=== PATIENT | male | born 1990 | race Caucasian/White ===

== ENCOUNTER 2021-10-20 17:42 | Emergency (ER) | payer OTHER, SELFPAY ==
[2021-10-20 17:43] VITALS: BP 119/68; PULSE 64; RESP 19; TEMP 36.8; O2SAT 99; BMI 25.0
--- NOTE | 2021-10-20 18:46 | HMH.EDUTC ---
[facility] [place] Disposition Clinical Impression: Dizziness Disposition: Still a Patient Condition on Discharge: Good Referrals: Nadiya Guzman [Primary Care Provider] - Time of Disposition: 18:55 (sent to ed report to chela) Medical Decision Making - Eric Inquiry Pt receiving controlled substance: No Vital Signs: 10/20/21 17:43 Temperature 98.3 F Temperature Source Oral Pulse Rate [Left Radial] 64 Respiratory Rate 19 Blood Pressure [Right Arm] 119/68 Blood Pressure Mean [Right Arm] 85 Blood Pressure Source [Right Arm] Automatic Cuff Blood Pressure Position [Right Arm] Sitting 02 Sat by Pulse Oximetry 99 Oxygen Delivery Method Room Air [facility] HPI - General Chief complaint: Urgent [facility] Stated complaint: dizzy, nausea Time Seen by Provider: 10/20/21 18:46 Mode of Arrival: Ambulatory Source of Information: Patient Limitations: No Limitations Description of Symptoms (Recalled from Triage Doc. by RN): dizzy and lightheaded and getting sick when he stands up since Friday HEENT Symptoms (Recalled from RN notes): No Resp Symptoms (Recalled from RN notes): No Skin Symptoms (Recalled from RN notes): No MS Symptoms (Recalled from RN notes): No Functional Status (Recalled from RN notes): na - History of Present Illness Provider Complaint: 31 yr old male presents for lightheaded and dizzy. pt states it started at 5-6 am and any movement makes him feel he is going to vomit and pass out. pt states he has been in bed all day and as long as he is still he is ok. - Worker's Comp Is this a Worker's Comp case?: No [facility] History - Hepatitis A Screen Drug use history?: No High risk sexual behaviors?: No History of sexually transmitted infection?: No Currently employed?: No Childcare worker?: No Do you have indoor plumbing?: Yes Do you have electricity?: Yes Attestation statement:: This patient has been screened for Hepatitis A risk factors. I have reviewed the patient's past medical history: Yes ROS Obtained: Yes Systems reviewed as appropriate & no additional complaints - Constitutional Constitutional: Reports system reviewed and no additional complaints, except as docu, Denies fatigue, Denies fever(s) - Eyes Eyes: Reports system reviewed and no additional complaints, except as docu, Reports blurry vision - ENT Ears, Nose, Mouth, and Throat: Reports system reviewed and no additional complaints, except as docu, Reports poor balance, Reports dizziness, Reports vertigo/dizziness - Cardiovascular Cardiovascular: Reports system reviewed and no additional complaints, except as docu, Denies chest pain - Respiratory Respiratory: Reports system reviewed and no additional complaints, except as docu, Denies cough - Gastrointestinal Gastrointestingal: Reports: system reviewed and no additional complaints, except as docu, nausea, vomiting - Musculoskeletal Musculoskeletal: Reports system reviewed and no additional complaints, except as docu, Denies joint pain - Integumentary/Breasts Skin/Breast: Reports system reviewed and no additional complaints, except as docu, Denies rash - Neurologic Neurologic: Reports system reviewed and no additional complaints, except as docu, Reports unsteadiness, Reports dizziness - Endocrine Endocrine: Reports system reviewed and no additional complaints, except as docu, Denies fatigue - Hematologic/Lymphatic Henatologic/Lymphatic: Reports system reviewed and no additional complaints, except as docu, Denies lymphadenopathy - Allergic/Immunologic Allergic/Immunologic: Reports system reviewed and no additional complaints, except as docu, Denies itchy eyes Physical Exam - General General appearance: alert, in no apparent distress - Head Head exam: atraumatic, normocephalic, normal inspection - Eye Eye exam: Present: normal appearance, PERRL - ENT ENT exam: Present: normal exam, normal oropharynx, mucous membranes moist, TM's normal bilaterally, normal external ear exam
--- NOTE | 2021-10-20 19:00 | PC.NURSE ---
PATIENT SENT TO ER PER Edinson MELENDEZ APRN FOR FURTHER EVALUATION. REPORT GIVEN TO Noel NEIL RN
[2021-10-20 19:10] VITALS: BP 138/75; PULSE 68; RESP 18; TEMP 36.6; O2SAT 98; BMI 27.3
--- NOTE | 2021-10-20 19:20 | PC.NURSE ---
placed pt on 2LPM NC per Dr. Tom.
--- NOTE | 2021-10-20 19:32 | ECG_ITS ---
APPROVED REPORT Exam: Resting ECG HR:52 bpm ECG Measurements Heart Rate 52 AXES MO 158 P -18 QRSd 103 QRS 44 QT 404 T 0 QTc 385 Conclusion SINUS BRADYCARDIA BORDERLINE ECG UNCONFIRMED REPORT Electronically signed by : Monroe Schafer MD 10/22/2021 18:01:00
--- NOTE | 2021-10-20 19:35 | HMH.EDGENADL ---
ED Disposition Clinical Impression: Dizziness Disposition: Still a Patient Condition on Discharge: Good Referrals: Nadiya Guzman [Primary Care Provider] - - Critical Care Critical Care Time: No Attestation: On 10/20/21, the high probability of a clinically significant, sudden or life threatening deterioration of the following system(s) required my full and direct attention, intervention and personal management. The time I documented below is in addition to time spent performing reported procedures but includes the following listed in this critical care notation. Medical Decision Making - Eric Inquiry Pt receiving controlled substance: No Vital Signs: 10/20/21 17:43 10/20/21 19:10 Temperature 98.3 F 97.8 F Temperature Source Oral Oral Pulse Rate [Left Radial] 64 68 Respiratory Rate 19 18 Blood Pressure [Right Arm] 119/68 138/75 Blood Pressure Mean [Right Arm] 85 96 Blood Pressure Source [Right Arm] Automatic Cuff Blood Pressure Position [Right Arm] Sitting 02 Sat by Pulse Oximetry 99 98 Oxygen Delivery Method Room Air Room Air - Lab Data Lab Results 10/20/21 19:10: WBC 9.9, RBC 5.73, Hgb 16.8, Hct 48.6, MCV 84.7, MCH 29.4, MCHC 34.7, RDW 13.4, Plt Count 247, MPV 7.7, Neut % (Auto) 76.2, Lymph % (Auto) 17.7, [place] % (Auto) 4.3, Eos % (Auto) 0.9, Baso % (Auto) 0.8, Neut # (Auto) 7.5, Lymph # (Auto) 1.8, [place] # (Auto) 0.4, Eos # (Auto) 0.1, Baso # (Auto) 0.1 10/20/21 19:10: Sodium 135 L, Potassium 4.1, Chloride 104, Carbon Dioxide 24, Anion Gap 11.1, BUN 13, Creatinine 0.80, Estimated Creat Clear 157, Estimated GFR 112, Est GFR ( Amer) 136, Glucose 121 H, Calcium 8.8, Total Bilirubin 0.6, AST 50, ALT 107 H, Alkaline Phosphatase 73, Total Protein 7.3, Albumin 4.6, Globulin 2.7, Albumin/Globulin Ratio 1.7 10/20/21 19:40: Lactate 1.7 Result diagrams: 10/20/21 19:10 10/20/21 19:10 Orders (Tests/Meds): ED MEDICATIONS Generic Name Dose Route Start Last Admin Trade Name Freq PRN Reason Stop Dose Admin Lactated Ringer's 1,000 mls @ 999 mls/hr 10/20/21 19:45 10/20/21 19:38 Lactated Ringer's 1000 Ml Bag IV 10/20/21 20:45 999 mls/hr .Q1H1M SAMANTHA Administration Discontinued Medications Generic Name Dose Route Start Last Admin Trade Name Freq PRN Reason Stop Dose Admin Meclizine HCl 25 mg 10/20/21 19:34 10/20/21 19:38 Meclizine 25mg Tablet PO 10/20/21 19:35 25 mg ONCE ONE Administration Ondansetron HCl 4 mg 10/20/21 19:34 10/20/21 19:38 Ondansetron 4mg/2ml Vial IV 10/20/21 19:35 4 mg ONCE ONE Administration ORDERS Category Date Time Status Carbon Monoxide, Whole Blood Stat Lab 10/20/21 19:32 Ordered Comprehensive Metabolic Panel Stat Lab 10/20/21 19:10 Results Troponin I Q3H Lab 10/20/21 22:45 Ordered Troponin I Q3H Lab 10/21/21 01:45 Ordered Troponin I Stat Lab 10/20/21 19:10 Results Venous Blood Gas Stat RT 10/20/21 19:32 Ordered EKG Request [ECG Request by Dr/Nse] Stat Y 10/20/21 19:32 Ordered Medical Decision Narrative: 31 yo male presents with dizziness and blurry vision associated with head movement. Nonfocal neuro exam, GCS 15, HINTS exam suggestive of peripheral, not central etiology. [place] Hall[place] test is negative. Able to ambulate without significant difficulty or ataxia. Finger to nose and heel to jugn intact. Motor and sensation grossly intact and normal per exam. DDx includes but not limited to BPPV, carbon monoxide toxicity, arrhythmia. Will obtain labs and imaging to further assess. EKG shows sinus bradycardia without AV block, normal intervals, no acute ischemic changes. Will give pt IVF bolus here in ED, give meclizine. Care handed off to Dr. Stanley pending labs, reassessment, final disposition. General Adult HPI - General Chief complaint: Dizziness Stated complaint: dizzy, nausea Time Seen by Provider: 10/20/21 18:46 Mode of Arrival: Family Vehicle Limitations: No Limitations Description of Symptoms (Recalled from ER [facility]
[2021-10-20 19:50] LABS: Basophils # 0.1 K/mm3 (0-0.2); Basophils % 0.8 % (0.1-2.0); Eosinophils # 0.1 K/mm3 (0.0-0.4); Eosinophils % 0.9 % (0.1-12.0); Hematocrit 48.6 % (42.0-52.0); Hemoglobin 16.8 g/dL (14.1-18.0); Lymphocytes # 1.8 K/mm3 (0.7-4.5); Lymphocytes % 17.7 % (10-50); Mean Corpuscular HGB Conc 34.7 g/dL (31.8-35.4); Mean Corpuscular Hemoglobin 29.4 pg (27.0-31.2); Mean Corpuscular Volume 84.7 fl (80-94); Mean Platelet Volume 7.7 fl (7.4-10.4); Monocytes # 0.4 K/mm3 (0.1-1.0); Monocytes % 4.3 % (1.7-9.3); Neutrophils # 7.5 K/mm3 (1.8-7.8); Neutrophils % 76.2 % (37.0-80.0); Platelet Count 247 K/mm3 (142-424); Red Blood Count 5.73 M/mm3 (4.60-6.20); Red Cell Distribution Width 13.4 % (11.5-17.5); White Blood Count 9.9 K/mm3 (4.8-10.8)
[2021-10-20 19:51] LABS: Chloride 104 mmol/L (98-107); Potassium 4.1 mmoL/L (3.5-5.1); Sodium 135 mmol/L (136-145)
[2021-10-20 19:54] LABS: Alanine Aminotransferase 107 U/L (12-78); Albumin Level 4.6 g/dl (3.5-5.0); Albumin/Globulin Ratio 1.7 (1.1-1.8); Alkaline Phosphatase 73 U/L (38-126); Anion Gap 11.1 mEq/L (5-15); Aspartate Amino Transferase 50 U/L (17-59); Bilirubin,Total 0.6 mg/dl (0.2-1.3); Blood Urea Nitrogen 13 mg/dl (9-20); Carbon Dioxide 24 mmol/L (22.0-30.0); Creatinine Clearance Estimated 157 mL/min (50-200); Estimated Glomerular Filt Rate 112 ml/min (>60); GFR (African American) 136 ML/MIN (>60); Globulin 2.7 g/dL (1.3-3.2); Total Protein,Serum 7.3 g/dl (6.3-8.2)
[2021-10-20 19:55] LABS: Calcium 8.8 mg/dl (8.4-10.2); Glucose 121 mg/dl (74-100)
[2021-10-20 20:03] LABS: Lactic Acid 1.7 mmol/L (0.7-2.1)
[2021-10-20 20:07] LABS: VBG Base Excess -1.5 mmol/L (-2.4-2.3); VBG HCO3 24.4 mmol/L (23-30); VBG Oxygen Saturation 76.6 % (50-70); VBG PCO2 47.2 mmol/L (35-51); VBG PH 7.33 mmol/L (7.31-7.41); VBG PO2 40.6 mmol/L (28-40); VBG Total CO2 25.9 mmol/L (23-27)
[2021-10-20 20:08] LABS: Troponin I < 0.01 ng/ml (0.00-0.034)
[2021-10-20 20:30] VITALS: BP 133/81; PULSE 59; RESP 17; O2SAT 100
[2021-10-20 20:49] VITALS: BP 128/79; PULSE 57; RESP 18; TEMP 36.6; O2SAT 97
[2021-10-24 17:27] LABS: Carbon Monoxide, Whole Blood 2.6 % (0.0-3.6)
== END 2021-10-20 21:10 | disposition home or self-care (01) ==
LOC: UTC 18:55 → ER 18:58
PROVIDERS: Emergency Provider Student in an Organized Health Care Education/Training Program; PCP Nurse Practitioner Family
DX: H81.10 Benign paroxysmal vertigo, unspecified ear (principal)
CPT/HCPCS: 80053; 82375; 82803; 83605; 84484; 85025; 93005; 96365; 96375; 99282; 99284; J2405

== ENCOUNTER → 2021-11-05 13:08 | Outpatient (CLI) | payer OTHER, SELFPAY ==
--- NOTE | 2021-11-05 13:12 | MR_ITS ---
FINAL REPORT CLINICAL HISTORY: DIZZINESS AND GIDDINESS. lt sided ear infection x1.5months. headache. lightheadedness. 17ml prohance given. FINDINGS: Multiplanar MR imaging of the brain was performed without and with contrast. There is no evidence of intracranial hemorrhage or mass. No abnormal extra-axial fluid collection is seen. The ventricular size is within normal limits. There is no evidence of shift of the midline structures. The posterior fossa and brainstem have an unremarkable appearance. No area of abnormal restricted diffusion is identified. No abnormal contrast enhancement is seen. Normal major vessel vascular flow voids are noted. There is mucosal thickening in the sinuses. IMPRESSION: No acute intracranial abnormality identified. Reviewed, Interpreted and Dictated by Bernardo Norris III, MD Transcribed by Elly Yoon Authenticated by Bernardo Norris III, MD on 11/05/2021 03:22:11 PM [facility]
== END ==
PROVIDERS: PCP Nurse Practitioner Family; Visit Provider Nurse Practitioner Family
DX: R42 Dizziness and giddiness (principal)
CPT/HCPCS: 70553; A9576

== ENCOUNTER 2023-11-25 16:59 | Emergency (ER) | payer OTHER, SELFPAY ==
--- NOTE | 2023-11-25 17:01 | ED_ITS ---
Discharge Plan Disposition Patient Disposition: Home, Self-Care Condition: Good Prescriptions Prescriptions: New amoxicillin-pot clavulanate 875-125 mg tablet 1 tab PO BID Qty: 20 0RF No Action meclizine 25 MG tablet 25 mg PO TID Qty: 10 0RF Referrals Follow up/Referrals: Bernardo Cain MD [Staff Physician] - See instructions Nadiya Guzman [Primary Care Provider] - See instructions Activity Restrictions/Add. Instructions Additional Instructions/Restrictions: Please call make an appointment with general surgery in the morning. Have called in a prescription for Augmentin into your pharmacy. You will receive the first dose now. Take Tylenol alternating every 4 hours with Motrin as needed for fever or pain or worsening symptoms. Return to the ER for any worsening signs or symptoms including nausea, vomiting, acute change in level of pain, fever Clinical Impressions Clinical Impression: Acute diverticulitis Discharge ED Provider: Cristiano Pedraza General Adult HPI <SHALA Taveras - Last Filed: 11/25/23 18:25> General Chief complaint: Abdominal Pain Stated complaint: abd pain , groin pain Time Seen by Provider: 11/25/23 17:01 History of Present Illness HPI narrative: Patient presents for evaluation of left flank pain and left testicle/groin pain since Friday. Patient reports that he woke up Friday morning with acute onset of left flank pain that radiated to his left testicle. 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 Patient denies chest pain fever chills hemoptysis hematochezia melena hematemesis hematuria dysuria. Patient has no family history of renal stones and no personal history of same. Patient has no history of inguinal hernias. Related Data Previous Rx's Medication Instructions Recorded meclizine 25 mg tablet 25 mg PO TID #10 tabs 10/20/21 amoxicillin 875 mg-potassium 1 tab PO BID #20 tabs 11/25/23 clavulanate 125 mg tablet Allergies Allergy/AdvReac Type Severity Reaction Status Date / Time No Known Allergies Allergy Verified 10/20/21 19:32 PFSH <SHALA Taveras - Last Filed: 11/25/23 18:25> PFS Disclaimer: The information contained in this section may have been updated after the patient was seen, as this information can be updated by other users. Social History (Updated 11/25/23 @ 18:25 by SHALA Taveras) Smoking Status: Never smoker alcohol intake: current current occupational status: employed Travel in the last 8 weeks: None <SHALA Taveras - Last Filed: 11/25/23 18:25> ROS Obtained: Yes Systems reviewed as appropriate & no additional complaints except as documented Physical Exam <SHALA Taveras - Last Filed: 11/25/23 18:25> General General appearance: alert and in no apparent distress Head Head exam: atraumatic and normal inspection Eye Eye exam: Present normal appearance and EOMI ENT ENT exam: Present normal exam, normal oropharynx and mucous membranes moist Neck Neck exam: Present normal inspection and full ROM; Absent lymphadenopathy Chest Chest inspection: Present normal inspection and symmetric chest wall rise Respiratory Respiratory exam: Present normal lung sounds bilaterally; Absent accessory muscle use Cardiovascular Cardiovascular exam: Present regular rate, normal rhythm, normal heart sounds, +S1 and +S2 Abdominal Exam Abdominal exam: Present soft, tenderness (Left flank) and normal bowel sounds; Absent guarding or rebound Abdominal tenderness: Present LUQ and LLQ Extremities Exam Extremities exam: Present normal inspection and full ROM Back Exam Back exam: Absent CVA tenderness (L) Neurological Exam Neurological exam: Present alert, oriented X3 and CN II-XII intact Psychiatric Psychiatric exam: Present normal affect and normal mood Skin Skin exam: Present warm, dry and normal color Lymphatic Lymphatic Findings: no adenopathy Medical Decision Making <SHALA Taveras - Last Filed: 11/25/23 18:25> Medical Records Medical records reviewed: Yes I reviewed the patient's medical records. Eric Inquiry Pt receiving controlled substance: No Vital Signs: 11/25/23 17:10 11/25/23 18:31 Temperature 97.8 F 98.4 F Temperature Source Oral Oral Pulse Rate 75 Pulse Rate [Right Radial] 77 Respiratory Rate 18 18 Blood Pressure 123/57 L Blood Pressure [Right Arm] 148/87 H Blood Pressure Mean [Right Arm] 107 02 Sat by Pulse Oximetry 99 Oxygen Delivery Method Room Air Lab Data Lab results reviewed: Yes I reviewed the patient's lab results. Lab Results 11/25/23 17:05: Urine Color Yellow, Urine Appearance Clear, Urine pH 6.0, Ur Specific [place] 1.025, Urine Protein Negative, Urine Glucose (UA) Negative, Urine Ketones Negative, Urine Blood Negative, Urine Nitrate Negative, Urine Bilirubin Negative, Urine Urobilinogen 0.2, Ur Leukocyte Esterase Negative 11/25/23 17:10: WBC 7.8, RBC 5.50, Hgb 16.2, Hct 47.7, MCV 86.7, MCH 29.4, MCHC 33.9, RDW 13.4, Plt Count 239, MPV 8.2, Neut % (Auto) 55.3, Lymph % (Auto) 32.6, [place] % (Auto) 8.6, Eos % (Auto) 1.7, Baso % (Auto) 1.7, Neut # (Auto) 4.3, Lymph # (Auto) 2.6, [place] # (Auto) 0.7, Eos # (Auto) 0.1, Baso # (Auto) 0.1, Sodium 141, Potassium 3.7, Chloride 105, Carbon Dioxide 29, Anion Gap 10.7, BUN 15, Creatinine 0.90, Estimated Creat Clear 148, Estimated GFR 97, Est GFR ( Amer) 117, Glucose 114 H, Calcium 9.5 11/25/23 17:10 11/25/23 17:10 Orders (Tests/Meds): ED MEDICATIONS Discontinued Medications Generic Name Dose Route Start Last Admin Trade Name Surya PRN Reason Stop Dose Admin Acetaminophen 1,000 mg 11/25/23 17:17 11/25/23 17:42 Acetaminophen 500mg Tab PO 11/25/23 17:18 1,000 mg ONCE ONE Administration Amoxicillin/Clavulanate Potassium 1 each 11/25/23 18:11 11/25/23 18:25 Amoxicillin/Clavulanate Potassium 875/125mg Tablet PO 11/25/23 18:12 1 each ONCE ONE Administration Ketorolac Tromethamine 30 mg 11/25/23 17:17 11/25/23 17:42 Ketorolac 30mg/Ml Vial IV 11/25/23 17:18 30 mg ONCE ONE Administration Methocarbamol 500 mg 11/25/23 17:19 11/25/23 17:43 Methocarbamol 500mg Tablet PO 11/25/23 17:20 500 mg ONCE ONE Administration ORDERS Category Date Time Status CT abdomen pelvis wo con Stat Cat Scan 11/25/23 17:17 Completed BMP [Basic Metabolic Panel] Stat Lab 11/25/23 17:10 Completed CBC w/Auto Diff [Complete Blood Count Auto Diff] Stat Lab 11/25/23 17:10 Completed UA [Urinalysis and Microscopic] Stat Lab 11/25/23 17:05 Results Medical Decision Narrative: In summary patient is a 43-year-old male who presents to the emergency department for evaluation of left flank pain. Patient is hemodynamically stable upon arrival, febrile. Physical exam is remarkable for tenderness to palpation in the left flank without CVA tenderness to percussion, tenderness that continues around the lateral side into the anterior and left lower quadrant towards the groin. There is no rebound guarding rigidity or masses on palpation. Palpation of the lower anterior abdominal wall/inguinal canal reveals no palpable masses or bowel loops or tenderness. External genitalia are normal to inspection and palpation. Differential diagnosis includes kidney stone versus hernia versus urinary tract infection versus intra-abdominal pathology versus muscle spasm pain. Initial workup will be conducted with hematologic labs CT scan of the abdomen pelvis without contrast. Initial interventions include Toradol Tylenol and Robaxin. Initial workup reviewed by me shows a normal white count with no shift. My informal review of his CT scan shows significant colonic diverticulosis with a segment of diverticulitis in the descending colon with radiologist read pending. Upon repeat evaluation minor discomfort reduction with the Toradol and acetaminophen.. Given this appropriate for discharge with oral antibiotics and a prescription for Augmentin 875 for 10 days has been sent to his pharmacy. Patient can have close follow-up with his PCP and and to call for general surgery appointment in the morning for evaluation for colonoscopy. Patient verbalized understanding and agreement. <Cristiano Pedraza MD - Last Filed: 11/25/23 19:00> Vital Signs: 11/25/23 17:10 11/25/23 18:31 Temperature 97.8 F 98.4 F Temperature Source Oral Oral Pulse Rate 75 Pulse Rate [Right Radial] 77 Respiratory Rate 18 18 Blood Pressure 123/57 L Blood Pressure [Right Arm] 148/87 H Blood Pressure Mean [Right Arm] 107 02 Sat by Pulse Oximetry 99 Oxygen Delivery Method Room Air Lab Data Lab Results 11/25/23 17:05: Urine Color Yellow, Urine Appearance Clear, Urine pH 6.0, Ur Specific [place] 1.025, Urine Protein Negative, Urine Glucose (UA) Negative, Urine Ketones Negative, Urine Blood Negative, Urine Nitrate Negative, Urine Bilirubin Negative, Urine Urobilinogen 0.2, Ur Leukocyte Esterase Negative 11/25/23 17:10: WBC 7.8, RBC 5.50, Hgb 16.2, Hct 47.7, MCV 86.7, MCH 29.4, MCHC 33.9, RDW 13.4, Plt Count 239, MPV 8.2, Neut % (Auto) 55.3, Lymph % (Auto) 32.6, [place] % (Auto) 8.6, Eos % (Auto) 1.7, Baso % (Auto) 1.7, Neut # (Auto) 4.3, Lymph # (Auto) 2.6, [place] # (Auto) 0.7, Eos # (Auto) 0.1, Baso # (Auto) 0.1, Sodium 141, Potassium 3.7, Chloride 105, Carbon Dioxide 29, Anion Gap 10.7, BUN 15, Creatinine 0.90, Estimated Creat Clear 148, Estimated GFR 97, Est GFR ( Amer) 117, Glucose 114 H, Calcium 9.5 Orders (Tests/Meds): ED MEDICATIONS Discontinued Medications Generic Name Dose Route Start Last Admin Trade Name Freq PRN Reason Stop Dose Admin Acetaminophen 1,000 mg 11/25/23 17:17 11/25/23 17:42 Acetaminophen 500mg Tab PO 11/25/23 17:18 1,000 mg ONCE ONE Administration Amoxicillin/Clavulanate Potassium 1 each 11/25/23 18:11 11/25/23 18:25 Amoxicillin/Clavulanate Potassium 875/125mg Tablet PO 11/25/23 18:12 1 each ONCE ONE Administration Ketorolac Tromethamine 30 mg 11/25/23 17:17 11/25/23 17:42 Ketorolac 30mg/Ml Vial IV 11/25/23 17:18 30 mg ONCE ONE Administration Methocarbamol 500 mg 11/25/23 17:19 11/25/23 17:43 Methocarbamol 500mg Tablet PO 11/25/23 17:20 500 mg ONCE ONE Administration ORDERS Category Date Time Status CT abdomen pelvis wo con Stat Cat Scan 11/25/23 17:17 Completed BMP [Basic Metabolic Panel] Stat Lab 11/25/23 17:10 Completed CBC w/Auto Diff [Complete Blood Count Auto Diff] Stat Lab 11/25/23 17:10 Completed UA [Urinalysis and Microscopic] Stat Lab 11/25/23 17:05 Results Medical Decision Narrative: In summary patient is a 43-year-old male who presents to the emergency department for evaluation of left flank pain. Patient is hemodynamically stable upon arrival, febrile. Physical exam is remarkable for tenderness to palpation in the left flank without CVA tenderness to percussion, tenderness that continues around the lateral side into the anterior and left lower quadrant towards the groin. There is no rebound guarding rigidity or masses on palpation. Palpation of the lower anterior abdominal wall/inguinal canal reveals no palpable masses or bowel loops or tenderness. External genitalia are normal to inspection and palpation. Differential diagnosis includes kidney stone versus hernia versus urinary tract infection versus intra-abdominal pathology versus muscle spasm pain. Initial workup will be conducted with hematologic labs CT scan of the abdomen pelvis without contrast. Initial interventions include Toradol Tylenol and Robaxin. Initial workup reviewed by me shows a normal white count with no shift. My informal review of his CT scan shows significant colonic diverticulosis with a segment of diverticulitis in the descending colon with radiologist read pending. Upon repeat evaluation minor discomfort reduction with the Toradol and acetaminophen.. Given this appropriate for discharge with oral antibiotics and a prescription for Augmentin 875 for 10 days has been sent to his pharmacy. Patient can have close follow-up with his PCP and and to call for general surgery appointment in the morning for evaluation for colonoscopy. Patient verbalized understanding and agreement. I was consulted by the VERÓNICA, and we discussed the complexity of the problems being addressed. I approved the treatment and management plan for this patient?s care in the Emergency Department, thus performing a substantive portion of the medical decision making. Cristiano Pedraza MD Critical Care <SHALA Taveras - Last Filed: 11/25/23 18:25> Critical Care Time Critical Care Time: No
[2023-11-25 17:10] VITALS: BP 148/87; PULSE 77; RESP 18; TEMP 36.6; O2SAT 99; BMI 29.5
--- NOTE | 2023-11-25 17:17 | CT_ITS ---
PROCEDURE INFORMATION: Exam: CT Abdomen And Pelvis Without Contrast Exam date and time: 11/25/2023 5:31 PM Age: 33 years old Clinical indication: Abdominal pain; Flank; Left; Additional info: Left flank pain TECHNIQUE: Imaging protocol: Computed tomography of the abdomen and pelvis without contrast. Radiation optimization: All CT scans at this facility use at least one of these dose optimization techniques: automated exposure control; mA and/or kV adjustment per patient size (includes targeted exams where dose is matched to clinical indication); or iterative reconstruction. COMPARISON: No relevant prior studies available. FINDINGS: Liver: Decreased density throughout the liver compatible with hepatic steatosis. Hepatomegaly Gallbladder and bile ducts: Gallbladder unremarkable Pancreas: Pancreas unremarkable Spleen: The spleen is unremarkable. Adrenal glands: Adrenal glands unremarkable. Kidneys and ureters: Normal. No hydronephrosis. Stomach and bowel: Colonic wall thickening with pericolonic edema and inflamed diverticulum involving the descending and sigmoid colon compatible with acute diverticulitis. Appendix: Appendix unremarkable Intraperitoneal space: Unremarkable. No free air. No significant fluid collection. Vasculature: Unremarkable. No abdominal aortic aneurysm. Lymph nodes: Nonspecific mesenteric and retroperitoneal lymph nodes are demonstrated. Urinary bladder: Unremarkable as visualized. Reproductive: Unremarkable as visualized. Bones/joints: Unremarkable. No acute fracture. Soft tissues: Unremarkable. IMPRESSION: Colonic wall thickening with pericolonic edema and inflamed diverticulum involving the descending and sigmoid colon compatible with acute diverticulitis.
[2023-11-25 17:22] LABS: Microscopic, Urine URINE MICROSCOPIC (MICROSCOPIC)
[2023-11-25] MEDS: KETOROLAC 30MG/ML VIAL 30 MG IV (17:42)
[2023-11-25] MEDS: ACETAMINOPHEN 500MG TAB 1000 MG PO (17:42)
[2023-11-25] MEDS: METHOCARBAMOL 500MG TABLET 500 MG PO (17:43)
[2023-11-25 17:57] LABS: Basophils # 0.1 K/mm3 (0-0.2); Basophils % 1.7 % (0.1-2.0); Eosinophils # 0.1 K/mm3 (0.0-0.4); Eosinophils % 1.7 % (0.1-12.0); Hematocrit 47.7 % (42.0-52.0); Hemoglobin 16.2 g/dL (14.1-18.0); Lymphocytes # 2.6 K/mm3 (0.7-4.5); Lymphocytes % 32.6 % (10-50); Mean Corpuscular HGB Conc 33.9 g/dL (31.8-35.4); Mean Corpuscular Hemoglobin 29.4 pg (27.0-31.2); Mean Corpuscular Volume 86.7 fl (80-94); Mean Platelet Volume 8.2 fl (7.4-10.4); Monocytes # 0.7 K/mm3 (0.1-1.0); Monocytes % 8.6 % (1.7-9.3); Neutrophils # 4.3 K/mm3 (1.8-7.8); Neutrophils % 55.3 % (37.0-80.0); Platelet Count 239 K/mm3 (142-424); Red Cell Distribution Width 13.4 % (11.5-17.5); White Blood Count 7.8 K/mm3 (4.8-10.8)
[2023-11-25 18:06] LABS: Chloride 105 mmol/L (98-107); Sodium 141 mmol/L (136-145)
[2023-11-25 18:07] LABS: Potassium 3.7 mmoL/L (3.5-5.1)
[2023-11-25 18:09] LABS: Blood Urea Nitrogen 15 mg/dl (9-20); Creatinine Clearance Estimated 148 mL/min (50-200); Estimated Glomerular Filt Rate 97 ml/min (>60); GFR (African American) 117 ML/MIN (>60)
[2023-11-25 18:10] LABS: Anion Gap 10.7 mEq/L (5-15); Calcium 9.5 mg/dl (8.4-10.2); Carbon Dioxide 29 mmol/L (22.0-30.0); Glucose 114 mg/dl (74-100)
[2023-11-25] MEDS: AMOXICILLIN/CLAVULANATE POTASSIUM 875/125MG TABLET 1 EACH PO (18:25)
[2023-11-25 18:31] VITALS: BP 123/57; PULSE 75; RESP 18; TEMP 36.9; O2SAT 96
[2023-11-25 18:32] LABS: Appearance,Urine CLEAR (Clear); Bilirubin,Urine Negative (Negative); Blood, Urine Negative (Negative); Color,Urine YELLOW (Yellow); Glucose,Urine (UA) Negative (Negative); Ketones,Urine Negative (Negative); Leukocyte Esterase,Urine Negative (Negative); Nitrate,Urine Negative (Negative); Protein,Urine Negative (Negative); Specific Gravity, Urine 1.025 (1.005-1.030); Urobilinogen,Urine 0.2 EU/dl (0.2)
== END 2023-11-25 18:36 | disposition home or self-care (01) ==
PROVIDERS: Physician Assistant; Emergency Provider Emergency Medicine; PCP Nurse Practitioner Family
DX: R10.32 Left lower quadrant pain (principal); K57.32 Diverticulitis of large intestine without perforation or abscess without bleeding
CPT/HCPCS: 74176; 80048; 81001; 85025; 96374; 99284

== ENCOUNTER 2024-07-05 18:05 | Emergency (ER) | payer OTHER, SELFPAY ==
[2024-07-05 18:07] VITALS: BP 162/86; PULSE 74; RESP 16; TEMP 36.6; O2SAT 98; BMI 29.5
--- NOTE | 2024-07-05 18:37 | ED_ITS ---
<Statement entered by Gracy Sosa MD - 07/05/24 23:03> I was consulted by the VERÓNICA, and we discussed the complexity of the problems being addressed. I approved the treatment and management plan for this patient's care in the emergency department, thus performing a substantive portion of the medical decision making. Gracy Sosa MD, LORENA, FACEP Discharge Plan Disposition Patient Disposition: Home, Self-Care Condition: Good Prescriptions Prescriptions: New prednisone 50 mg tablet 50 mg PO DAILY 5 Days Qty: 5 0RF meclizine 25 mg tablet 25 mg PO QID PRN (Reason: dizziness) Qty: 20 0RF No Action meclizine 25 MG tablet 25 mg PO TID Qty: 10 0RF amoxicillin-pot clavulanate 875-125 mg tablet 1 tab PO BID Qty: 20 0RF Referrals Follow up/Referrals: Felix Goins MD [Physician] - See instructions Nadiya Guzman [Primary Care Provider] - See instructions Activity Restrictions/Add. Instructions Additional Instructions/Restrictions: Please take your steroids till they are gone. I have also sent a new prescription for your meclizine as your previous prescription is very old and may be less effective. I have referred you to ear nose and throat for ongoing evaluation and management. Please call in the morning to make your appointment. Return to ER for any worsening signs or symptoms as needed. Clinical Impressions Clinical Impression: Benign paroxysmal positional vertigo Qualifiers: Laterality: unspecified laterality Qualified Code(s): H81.10 - Benign paroxysmal vertigo, unspecified ear Instructions Patient Instructions: Vertigo Print Language Print Language: Albanian Discharge ED Provider: Gracy Sosa General Adult HPI General Chief complaint: Dizziness Stated complaint: Lightheaded Time Seen by Provider: 07/05/24 18:37 Mode of Arrival: Ambulatory Source of Information: Patient Limitations: No Limitations Description of Symptoms (Recalled from ER Triage Doc. by RN): Patient complaint of vertigo . States he has had it in the past and that it feels the same way now. Complaint of dizziness since . History of Present Illness HPI narrative: Patient presents for evaluation of dizziness. Patient states that since he has had intermittent dizziness. It is primarily when he is standing or looking up. He reports that lying still and looking downward makes it better. There is no aggravating or relieving factors. Patient does have a history of previously vertigo 2 years ago when he was also diagnosed with an inner ear infection. He was prescribed meclizine with some relief. However he has been taking meclizine without relief since . He denies any headache chest pain shortness of breath fever chills hemoptysis hematochezia melena neck pain etc.. 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 Related Data Previous Rx's ?Medication ?Instructions ?Recorded meclizine 25 mg tablet 25 mg PO TID #10 tabs 10/20/21 amoxicillin 875 mg-potassium 1 tab PO BID #20 tabs 11/25/23 clavulanate 125 mg tablet meclizine 25 mg tablet 25 mg PO QID PRN dizziness #20 tabs 07/05/24 prednisone 50 mg tablet 50 mg PO DAILY 5 days #5 tabs 07/05/24 Allergies Allergy/AdvReac Type Severity Reaction Status Date / Time No Known Allergies Allergy Verified 10/20/21 19:32 [facility] Disclaimer: The information contained in this section may have been updated after the patient was seen, as this information can be updated by other users. Social History (Updated 11/25/23 @ 18:25 by SHALA Taveras) Smoking Status: Never smoker alcohol intake: current current occupational status: employed Travel in the last 8 weeks: None Other Medical History Have you received the Flu Vaccine for this season: No Have you received the Pneumonia Vaccine: No ROS Obtained: Yes Systems reviewed as appropriate & no additional complaints except as documented Physical Exam General General appearance: alert and in no apparent distress Respiratory Respiratory exam: Present normal lung sounds bilaterally Cardiovascular Cardiovascular exam: Present regular rate Neurological Exam Neurological exam: Present alert and oriented X3 Medical Decision Making Medical Records Medical records reviewed: Yes I reviewed the patient's medical records. Screening: Per USPSTF and CDC recommendations, given the prevalence of disease in our region, it is our hospital?s policy to screen for HIV and viral Hepatitis for all patients aged 18 and over and those with ongoing risk factors. Eric Inquiry Pt receiving controlled substance: No Vital Signs: 07/05/24 18:07 Temperature 97.9 F Temperature Source Oral Pulse Rate [Radial] 74 Respiratory Rate 16 Blood Pressure [Right Arm] 162/86 H Blood Pressure Mean [Right Arm] 111 Blood Pressure Source [Right Arm] Automatic Cuff Blood Pressure Position [Right Arm] Sitting 02 Sat by Pulse Oximetry 98 Oxygen Delivery Method Room Air Orders (Tests/Meds): ORDERS Category Date Time Status HIV (1&2) Antibody Rapid Stat Lab 07/05/24 18:34 Ordered Hep C Ab with Reflex to RNA Stat Lab 07/05/24 18:34 Ordered Medical Decision Narrative: In summary patient is a 34-year-old male who presents to the emergency [facility] for evaluation of dizziness. Patient is hemodynamically stable upon arrival, febrile. Physical exam is remarkable for a well-nourished well-developed 34-year-old gentleman who currently is in no acute distress. Pam Coma Score is 15 and his cranial nerve exam is grossly intact 2 through 12. Bilateral tympanic membranes are normal without evidence of infection. There is no nuchal rigidity or C-spine tenderness. There is dizziness with neck extension but not with flexion or rotation. There is dizziness upon standing that goes away with lying down. Differential diagnosis includes benign positional paroxysmal vertigo versus hydrops versus vestibular neuronitis etc. Initial workup was considered however physical exam is classic for BPPV with no red flags that this is anything other. Initial interventions include meclizine steroids. Patient reported improvement after initial intervention. Patient is appropriate for discharge with instructions to follow-up with PCP for no improvement or worsening symptoms. Patient will be referred to ENT with a prescription for steroids and meclizine as his previous prescription is 2 years old Critical Care Critical Care Time Critical Care Time: No
[2024-07-05] MEDS: MECLIZINE 25MG TABLET 25 MG PO (19:32)
[2024-07-05] MEDS: predniSONE 20MG TAB 60 MG PO (19:32)
[2024-07-05 19:36] VITALS: BP 132/74; PULSE 72; RESP 18; TEMP 36.6; O2SAT 98
== END 2024-07-05 19:37 | disposition home or self-care (01) ==
PROVIDERS: Emergency Provider Student in an Organized Health Care Education/Training Program; PCP Nurse Practitioner Family
DX: H81.10 Benign paroxysmal vertigo, unspecified ear (principal)
CPT/HCPCS: 99283

== ENCOUNTER 2025-08-22 15:08 | Emergency (ER) | payer OTHER, SELFPAY ==
[2025-08-22 15:18] VITALS: BP 165/106; PULSE 68; RESP 18; TEMP 36.8; O2SAT 98; BMI 28.0
--- NOTE | 2025-08-22 15:18 | XR_ITS ---
FINAL REPORT TECHNIQUE: 3 views left hand CLINICAL HISTORY: tenderness, laceration COMPARISON: None FINDINGS: Three views of the left hand show no evidence of acute displaced fracture or dislocation of the visualized bony architecture. The joint spaces appear normal. No radiopaque foreign body is seen. IMPRESSION: Unremarkable exam. Reviewed, Interpreted and Dictated by Noel Viramontes MD Transcribed by Park Grier Authenticated and . [facility]
--- NOTE | 2025-08-22 15:23 | ED_ITS ---
Discharge Plan Disposition Patient Disposition: Home, Self-Care Condition: Good Prescriptions Prescriptions: New cephalexin 500 mg capsule 500 mg PO BID 5 Days Qty: 10 0RF No Action prednisone 50 mg tablet 50 mg PO DAILY 5 Days Qty: 5 0RF meclizine 25 mg tablet 25 mg PO QID PRN (Reason: dizziness) Qty: 20 0RF meclizine 25 MG tablet 25 mg PO TID Qty: 10 0RF amoxicillin-pot clavulanate 875-125 mg tablet 1 tab PO BID Qty: 20 0RF Referrals Follow up/Referrals: Nadiya Guzman [Primary Care Provider, Medical] - See instructions Activity Restrictions/Add. Instructions Additional Instructions/Restrictions: Take the antibiotics as prescribed. Keep the wound covered when you are at work. Clean the wound twice daily with soap and water. Return for any signs of infection including redness severe swelling, puslike drainage. The stitches will need to be removed in about 7 to 10 days. Clinical Impressions Clinical Impression: Laceration Instructions Patient Instructions: DI for Laceration Repair Print Language Print Language: Yoruba Discharge ED Provider: Clara Thompson Adult HPI General Chief complaint: Wound/Laceration Stated complaint: AO 08/22/25 1345 laceration L index,middle finger Time Seen by Provider: 08/22/25 15:15 History of Present Illness HPI narrative: Patient is a 35-year-old male who presented to the emergency department with a laceration to his left index and middle finger. Patient was at work when it was cut on a piece of metal. Patient is unsure when his last tetanus shot was. Patient is not having any significant pain. Patient has sensation and motor intact. Is not on any blood thinners. Related Data Previous Rx's ?Medication ?Instructions ?Recorded meclizine 25 mg tablet 25 mg PO TID #10 tabs amoxicillin 875 mg-potassium 1 tab PO BID #20 tabs clavulanate 125 mg tablet meclizine 25 mg tablet 25 mg PO QID PRN dizziness # 20 tabs 07/05/24 prednisone 50 mg tablet 50 mg PO DAILY 5 days #5 tab s 07/05/24 cephalexin 500 mg capsule 500 mg PO BID 5 days #10 cap s 08/22/25 Allergies Allergy/AdvReac Type Severity Reaction Status Date / Time No Known Allergies Allergy Verified 10/20/21 19:[address] [facility] Disclaimer: The information contained in this section may have been updated after the patient was seen, as this information can be updated by other users. Social History (Updated 11/25/23 @ 18:25 by SHALA Taveras) Smoking Status: Never smoker alcohol intake: current current occupational status: employed Travel in the last 8 weeks?: None Have you lived/traveled outside [place] in past 30 days?: No Contact w/someone who lives/traveled outside [place] past 30 days?: No Exposure to someone with infectious disease in past 14 days?: No Do you have a fever (greater than 100.4 F or 38 C)?: No Have you tested positive for COVID-19?: No Exposed to someone with COVID-19 in past 14 days?: No Do you have a sore throat?: No Do you have a cough?: No Do you have any weakness?: No Do you have any diarrhea?: No Are you experiencing any unusual bleeding?: No Do you have any muscle aches/pain?: No Do you have any abdominal pain?: No Are you experiencing loss of taste or smell?: No Other Medical History Have you received the Flu Vaccine for this season: No Have you received the Pneumonia Vaccine: No ROS Obtained: Yes All systems reviewed & no additional complaints except as documented and Yes Systems reviewed as appropriate & no additional complaints except as documented Physical Exam General General appearance: alert and in no apparent distress Head Head exam: atraumatic, normocephalic and normal inspection Eye Eye exam: Present normal appearance, PERRL and EOMI; Absent scleral icterus ENT ENT exam: Present normal exam and normal external ear exam Neck Neck exam: Present normal inspection and full ROM Chest Chest inspection: Present normal inspection and symmetric chest wall rise Respiratory Respiratory exam: Present normal lung sounds bilaterally; Absent respiratory distress or wheezes Cardiovascular Cardiovascular exam: Present regular rate, normal rhythm and normal heart sounds Abdominal Exam Abdominal exam: Present soft and distention; Absent tenderness, guarding or rebound Extremities Exam Extremities exam: Present normal inspection and full ROM Back Exam Back exam: Present normal inspection and full ROM Neurological Exam Neurological exam: Present alert and oriented X3 Psychiatric Psychiatric exam: Present normal affect and normal mood Skin Skin exam: Present warm, dry and other (L index finger with 2 cm laceration to the finger) Medical Decision Making Medical Records Medical records reviewed: Yes I reviewed the patient's medical records. Screening: Per USPSTF and CDC recommendations, given the prevalence of disease in our [facility], it is our hospital?s policy to screen for HIV and viral Hepatitis for all patients aged 18 and over and those with ongoing risk factors. Eric Inquiry Pt receiving controlled substance: No Vital Signs: 08/22/25 15:18 08/22/25 16:36 08/22/25 17:14 Temperature 98.3 F 98.2 F Temperature Source Oral Temporal Artery Scan Pulse Rate 61 73 Pulse Rate [Right] 68 Respiratory Rate 18 20 Blood Pressure 182/84 H 187/94 H Blood Pressure [Right Arm] 165/106 H Blood Pressure Mean [Right Arm] 125 Blood Pressure Source Automatic Cuff Blood Pressure Source [Right Arm] Automatic Cuff Blood Pressure Position Sitting Blood Pressure Position [Right Arm] Sitting 02 Sat by Pulse Oximetry 98 97 Oxygen Delivery Method Room Air Room Air Room Air Lab Data Lab results reviewed: Yes I reviewed the patient's lab results. Orders (Tests/Meds): ED MEDICATIONS Discontinued Medications Generic Name Dose Route Start Last Admin Trade Name Freq PRN Reason Stop Dose Admin Bacitracin 1 each 08/22/25 16:48 08/22/25 16:56 Bacitracin Oint 0.9gm Udp TP 08/22/25 16:49 1 each ONCE ONE Administration Cephalexin HCl 500 mg 08/22/25 16:48 08/22/25 16:56 Cephalexin 500mg Capsule PO 08/22/25 16:49 500 mg ONCE ONE Administration Cocaine HCl 1 ml 08/22/25 15:18 08/22/25 15:30 Cocaine 4% Topical Soln 4ml Bottle TP 08/22/25 15:19 1 ml ONCE ONE Administration Epinephrine HCl 1 mg 08/22/25 15:18 08/22/25 15:30 Epinephrine 1 Mg/Ml Vial TP 08/22/25 15:19 1 mg ONCE ONE Administration Lidocaine HCl 1 ml 08/22/25 15:18 08/22/25 15:30 Lidocaine 2% Urojet 10ml TP 08/22/25 15:19 1 ml ONCE ONE Administration Tetanus/Reduced Diphtheria/Acell Pertussis 0.5 ml 08/22/25 15:18 08/22/25 15:30 Tet/Diphth/Pert-Adult 0.5ml Syringe IM 08/22/25 15:19 0.5 ml .ONCE ONE Administration ORDERS Category Date Time Status Hand XR left minimum 3 views [XR hand LT min 3V] Stat Exams 08/22/25 15:18 Taken Medical Decision Narrative: Is a 35-year-old gentleman with no significant past medical history who presented to the emergency department with a left finger laceration. On arrival, patient was hemodynamically stable with unremarkable vital signs. Differential includes but not limited to: Laceration, venous injury, arterial injury, fracture, open fracture, amongst others. X-ray was obtained which showed no acute fracture. Patient's laceration was extensively cleaned. Patient's wound on the middle finger was not extensive therefore did not require any stitches. Patient's index finger laceration was 2 cm, required 5 nonabsorbable stitches. Bacitracin was placed on the wound and covered. Patient was recommended to return to a healthcare provider to get the stitches removed in 7 to 10 days. Patient was otherwise discharged home in stable condition. Patient was given antibiotics for antibiotic coverage and tetanus was updated. Procedures Laceration Laceration 1: Site: finger Size (cm): 2 Description: linear Depth: simple, single layer Local Anesthetic: other anesthetic (topical) Pre-repair: wound explored and irrigated extensively Skin layer closed with: other (ethilon) Size (cm): 5-0 Number of sutures: 5 Technique: simple, interrupted Critical Care Critical Care Time Critical Care Time: No
[2025-08-22] MEDS: TET/DIPHTH/PERT-ADULT 0.5ML SYRINGE 0.5 ML IM (15:30)
[2025-08-22] MEDS: COCAINE 4% TOPICAL SOLN 4ML BOTTLE 1 ML TP (15:30)
[2025-08-22] MEDS: LIDOCAINE 2% UROJET 10ML TP (15:30)
[2025-08-22 16:36] VITALS: BP 182/84; PULSE 61; O2SAT 97
--- NOTE | 2025-08-22 16:37 | PC.NURSE ---
Dr Thompson at bedside repairing laceration when the patient experienced a vasovagal syncopal episode. patient lying down on ED stretcher at this time and VS are 184/79, HR 73, O2 98% room air. patient stated that he felt better but queasy .
[2025-08-22] MEDS: BACITRACIN OINT 0.9GM UDP 1 EACH TP (16:56)
[2025-08-22 17:14] VITALS: BP 187/94; PULSE 73; RESP 20; TEMP 36.8; O2SAT 98
== END 2025-08-22 17:17 | disposition home or self-care (01) ==
PROVIDERS: Emergency Provider Student in an Organized Health Care Education/Training Program; PCP Nurse Practitioner Family
DX: S61.211A Laceration without foreign body of left index finger without damage to nail, initial encounter (principal); S61.213A Laceration without foreign body of left middle finger without damage to nail, initial encounter; W26.8XXA Contact with other sharp object(s), not elsewhere classified, initial encounter
CPT/HCPCS: 12001; 73130; 90471; 90715; 99283; 99284; J0169